=== PATIENT | female | born 1975 | race Caucasian/White ===

== ENCOUNTER 2017-04-11 12:33 | Outpatient (CLI) | payer OTHER ==
[~2017-04-11 12:33] MED LIST: AZITHROMYCIN 500 MG PO; CELEBREX100 MG PO; CELEBREX200MG PO; CLONAZEPAM0.5 MG; DEPO-MEDROL40 MG/ML IM; DIAZEPAM10 MG PO; FLONASE16 GM NASAL; MEDROLPACK PO; METHOCARBAMOL500 MG PO; METOPROLOL SUCC25 MG; METOPROLOL SUCC25 MG PO; NAPROXEN500 MG PO; ROBAXIN500 MG PO; SKELAXIN800 MG PO; ZITHROMAX500 MG; ZOVIRAX15 GM TP; ZYRTEC10 MG PO
== END 2017-04-11 12:39 | disposition home or self-care (01) ==
LOC: LAB 12:33
DX: D72.89 Other specified disorders of white blood cells (principal)

== ENCOUNTER 2017-09-24 10:20 | Outpatient (CLI) | payer OTHER ==
[~2017-09-24 10:20] MED LIST changes: +MELOXICAM15 MG PO; +NORFLEX100MG PO
== END 2017-09-24 11:00 | disposition home or self-care (01) ==
LOC: NUCLEAR 10:20
DX: I82.493 Acute embolism and thrombosis of other specified deep vein of lower extremity, bilateral (principal)

== ENCOUNTER 2017-10-27 09:38 | Outpatient (CLI) | payer OTHER | END 2017-10-27 09:39 | disposition home or self-care (01) | LOC: LAB 09:38 | DX: B18.2 Chronic viral hepatitis C (principal); D69.6 Thrombocytopenia, unspecified; D50.8 Other iron deficiency anemias; D51.8 Other vitamin B12 deficiency anemias; I10 Essential (primary) hypertension; E55.9 Vitamin D deficiency, unspecified; K90.89 Other intestinal malabsorption; E78.2 Mixed hyperlipidemia; E03.8 Other specified hypothyroidism; D68.8 Other specified coagulation defects ==

== ENCOUNTER 2018-02-12 11:11 | Outpatient (CLI) | payer OTHER | END 2018-02-12 11:18 | disposition home or self-care (01) | LOC: MAMO-SONO 11:11 | DX: Z12.31 Encounter for screening mammogram for malignant neoplasm of breast (principal); N64.89 Other specified disorders of breast; N83.292 Other ovarian cyst, left side; N83.291 Other ovarian cyst, right side ==

== ENCOUNTER 2018-05-07 07:36 | Outpatient (CLI) | payer OTHER ==
[~2018-05-07 07:36] MED LIST changes: +MOBIC15 MG PO
== END 2018-05-07 15:00 | disposition home or self-care (01) ==
LOC: LAB 07:36
DX: E78.49 Other hyperlipidemia (principal); I10 Essential (primary) hypertension; D64.89 Other specified anemias; N39.0 Urinary tract infection, site not specified; I20.8 Other forms of angina pectoris; E13.21 Other specified diabetes mellitus with diabetic nephropathy

== ENCOUNTER 2018-08-01 09:56 | Outpatient (CLI) | payer OTHER | END 2018-08-01 12:02 | disposition home or self-care (01) | LOC: LAB 09:56 | DX: J11.1 Influenza due to unidentified influenza virus with other respiratory manifestations (principal); J11.89 Influenza due to unidentified influenza virus with other manifestations ==

== ENCOUNTER 2018-08-03 14:22 | Outpatient (CLI) | payer OTHER | END 2018-08-03 15:00 | disposition home or self-care (01) | LOC: LAB 14:22 | DX: B34.8 Other viral infections of unspecified site (principal) ==

== ENCOUNTER 2018-08-05 10:10 | Outpatient (CLI) | payer OTHER | END 2018-08-05 12:04 | disposition home or self-care (01) | LOC: LAB 10:10 | DX: J11.1 Influenza due to unidentified influenza virus with other respiratory manifestations (principal); R50.9 Fever, unspecified ==

== ENCOUNTER → 2018-08-06 | Emergency (ER) | payer OTHER ==
[~2018-08-06] VITALS: Ht 165.1 cm; Wt 49.0 kg
== END | disposition home or self-care (01) ==
LOC: ER 11:25
DX: B34.9 Viral infection, unspecified (principal)

== ENCOUNTER → 2018-12-20 | Outpatient (CLI) | payer OTHER | END | disposition home or self-care (01) | LOC: NUCLEAR 11:29 | DX: I20.9 Angina pectoris, unspecified (principal) ==

== ENCOUNTER 2018-12-23 08:38 | Outpatient (CLI) | payer OTHER | END 2018-12-23 09:03 | disposition home or self-care (01) | LOC: LAB 08:38 | DX: E55.9 Vitamin D deficiency, unspecified (principal); B18.2 Chronic viral hepatitis C; E06.3 Autoimmune thyroiditis; K90.89 Other intestinal malabsorption; R97.0 Elevated carcinoembryonic antigen [CEA]; D69.49 Other primary thrombocytopenia; E78.2 Mixed hyperlipidemia; D51.1 Vitamin B12 deficiency anemia due to selective vitamin B12 malabsorption with proteinuria; D50.8 Other iron deficiency anemias; E03.8 Other specified hypothyroidism; D51.0 Vitamin B12 deficiency anemia due to intrinsic factor deficiency; D51.8 Other vitamin B12 deficiency anemias; D68.8 Other specified coagulation defects; I10 Essential (primary) hypertension ==

== ENCOUNTER 2019-02-11 16:30 | Outpatient (CLI) | payer OTHER | END 2019-02-11 16:48 | disposition home or self-care (01) | LOC: LAB 16:30 | DX: Z11.3 Encounter for screening for infections with a predominantly sexual mode of transmission (principal); B01.89 Other varicella complications ==

== ENCOUNTER 2019-12-19 16:09 | Outpatient (CLI) | payer OTHER | END 2019-12-19 16:45 | disposition home or self-care (01) | LOC: SONOGRAMA 16:09 | PROVIDERS: ATTEND Specialist | DX: N92.1 Excessive and frequent menstruation with irregular cycle (principal) ==

== ENCOUNTER 2020-12-06 08:00 | Outpatient (CLI) | payer OTHER | END 2020-12-06 08:30 | disposition home or self-care (01) | LOC: PPH VACUNA 08:00 | PROVIDERS: ATTEND Emergency Medicine Pediatric Emergency Medicine | DX: Z23 Encounter for immunization (principal) ==

== ENCOUNTER 2022-05-26 10:28 | Emergency (ER) | payer OTHER ==
[~2022-05-26] VITALS: Ht 165.1 cm; Wt 56.7 kg
[2022-05-26] MEDS ORDERED: LANOXIN125 MCG (10:32)
== END 2022-05-26 14:55 | disposition home or self-care (01) ==
LOC: ER 10:28
DX: I10 Essential (primary) hypertension (principal); Z91.013 Allergy to seafood

== ENCOUNTER → 2024-07-06 | Emergency (ER) | payer OTHER ==
[~2024-07-06] VITALS: Ht 165.1 cm; Wt 57.6 kg
[~2024-07-06] MED LIST changes: +KETOROLAC TROMETHAMINE 30 MG VIAL IM STA; +KETOROLAC TROMETHAMINE 30 MG VIAL ONE; +LANOXIN125 MCG; +ORPHENADRINE CITRATE 30 MG/ML AMPUL IM STA; +ORPHENADRINE CITRATE 30 MG/ML AMPUL ONE
== END | disposition home or self-care (01) ==
LOC: ER 13:34
DX: M54.50 Low back pain, unspecified (principal); M54.6 Pain in thoracic spine; Z91.013 Allergy to seafood